=== PATIENT | female | born 1985 | race Caucasian/White ===

== ENCOUNTER → 2018-09-10 | Day surgery (SDC) | payer OTHER | END | disposition home or self-care (01) | LOC: ADM 09-09 12:15 → AMB-ENDOS 06:50 | DX: K60.1 Chronic anal fissure (principal) ==

== ENCOUNTER 2021-11-04 01:14 | Emergency (ER) | payer OTHER ==
[~2021-11-04] VITALS: Ht 157.5 cm; Wt 59.9 kg
[2021-11-04] MEDS ORDERED: SYNTHROID75 MCG (01:18)
== END 2021-11-04 07:50 | disposition home or self-care (01) ==
LOC: ER 01:14
DX: N20.9 Urinary calculus, unspecified (principal); R11.2 Nausea with vomiting, unspecified; Z3A.21 21 weeks gestation of pregnancy; O26.892 Other specified pregnancy related conditions, second trimester

== ENCOUNTER 2022-03-04 12:12 | Outpatient (CLI) | payer OTHER ==
[~2022-03-04 12:12] MED LIST: SYNTHROID75 MCG
== END 2022-03-04 13:25 | disposition home or self-care (01) ==
LOC: NST 12:12
PROVIDERS: ATTEND Obstetrics & Gynecology
DX: Z34.83 Encounter for supervision of other normal pregnancy, third trimester (principal)

== ENCOUNTER 2022-03-16 11:54 | Inpatient (IN) | payer OTHER ==
[~2022-03-16] VITALS: Ht 160 cm; Wt 65.3 kg
[2022-03-20] MEDS ORDERED: PRENATAL TABLE1 EAC1 PO (06:48)
== END 2022-03-22 11:55 | disposition home or self-care (01) | DRG 807 ==
LOC: OB/GYN 11:54 → LDR 03-20 05:37 → SURG-SUITE 03-20 14:04
PROVIDERS: ADMIT Obstetrics & Gynecology; ATTEND Obstetrics & Gynecology
PROC: 10E0XZZ Delivery of Products of Conception, External Approach (ICD-10-PCS; principal; 2022-03-20)
PROC: 4A1HXCZ Monitoring of Products of Conception, Cardiac Rate, External Approach (ICD-10-PCS; 2022-03-20)
DX: O80 Encounter for full-term uncomplicated delivery (principal); Z37.0 Single live birth; Z3A.40 40 weeks gestation of pregnancy; Z20.822 Contact with and (suspected) exposure to COVID-19

== ENCOUNTER 2024-11-03 10:42 | Outpatient (CLI) | payer OTHER ==
[~2024-11-03 10:42] MED LIST changes: +PRENATAL TABLE1 EAC1 PO
[2024-11-04] MEDS ORDERED: OXYCODONE HCL5 MG PO (09:03)
== END 2024-11-03 10:43 | disposition home or self-care (01) ==
LOC: LAB 10:42
PROVIDERS: ATTEND Surgery
DX: Z32.00 Encounter for pregnancy test, result unknown (principal)

== ENCOUNTER 2024-11-04 05:45 | Day surgery (SDC) | payer OTHER ==
[2024-10-22 14:29] VITALS: BP 96/66
[~2024-11-04] VITALS: Ht 157.5 cm; Wt 52.6 kg
[2024-11-04] MEDS ORDERED: POVIDONE-IODINE 118 ML BOTT TOP ONE (08:00)
[2024-11-04] MEDS ORDERED: DIBUCAINE 30 GM TUBE RECTAL ONE (08:00)
[2024-11-04] MEDS ORDERED: CEFTRIAXONE SODIUM 2,000 MG VIAL IV ONE (08:00)
[2024-11-04] MEDS ORDERED: HEMOSTATIC MATRIX 1 KIT KIT TOP ONE (08:00)
[2024-11-04] MEDS ORDERED: BUPIVACAINE LIPOSOME/PF 266 MG/20 ML VIAL IJ ONE (08:00)
[2024-11-04] MEDS ORDERED: BUPIVACAINE HCL/PF 0.25% 30ML VIAL InF ONE (08:00)
[2024-11-04] MEDS ORDERED: METRONIDAZOLE/SODIUM CHLORIDE 500 MG/100 ML PIGGYBACK IV ONE (08:00)
[2024-11-04] MEDS ORDERED: TAMSULOSIN HCL 0.4 MG CAP PO ONE (09:00)
[2024-11-04] MEDS ORDERED: OXYCODONE HCL5 MG PO (09:03)
== END 2024-11-04 11:45 | disposition home or self-care (01) ==
LOC: CIR.AMB 05:45
PROVIDERS: ATTEND Surgery
DX: K64.2 Third degree hemorrhoids (principal); K64.4 Residual hemorrhoidal skin tags; E03.8 Other specified hypothyroidism; D64.9 Anemia, unspecified

== ENCOUNTER 2024-11-04 13:04 | Emergency (ER) | payer OTHER ==
[~2024-11-04] VITALS: Ht 157.5 cm; Wt 52.2 kg
[~2024-11-04 13:04] MED LIST changes: +OXYCODONE HCL5 MG PO
[2024-11-04] MEDS ORDERED: 0.9 % SODIUM CHLORIDE 1,000 ML IV SCH ×2 (13:45)
[2024-11-04 13:56] LABS: HEMATOCRIT 29.5 % (36.0-45.00); HEMOGLOBIN 9.8 g/dL (12.0-15.00); MEAN CORPUSCULAR HGB CONC 33.3 g/dl (32.0-36.0); PLATELET COUNT 266 K/uL (150-450); RED BLOOD COUNT 3.64 M/uL (4.00-6.00)
[2024-11-04 13:57] LABS: RED CELL DISTRIBUTION WIDTH 22.1 % (11.5-14.5)
[2024-11-04 14:17] LABS: ALBUMIN 3.3 gm/dL (3.4-5.0); BILIRUBIN TOTAL 0.47 mg/dL (0.3-1.2); CALCIUM 8.3 mg/dL (8.5-10.1); CREATININE SERUM 0.62 mg/dL (0.55-1.02); GFR 107.73; GLOBULINA 2.7 G/DL (2.4-3.5); POTASSIUM 3.82 mEq/L (3.5-5.1)
== END 2024-11-04 15:22 | disposition home or self-care (01) ==
LOC: ER 13:04
PROVIDERS: Surgery
DX: R42 Dizziness and giddiness (principal); T50.995A Adverse effect of other drugs, medicaments and biological substances, initial encounter; Y92.231 Patient bathroom in hospital as the place of occurrence of the external cause; Z98.890 Other specified postprocedural states